=== PATIENT | female | born 1955 | race Caucasian/White ===

== ENCOUNTER → 2019-11-15 | Outpatient (CLI) | payer OTHER ==
--- NOTE | 2019-11-16 11:08 | RAD ---
DATE: November 15, 2019 EXAM: DIGITAL SCREEN BILAT W/CAD HISTORY: Screening study. COMPARISON: 2014 and 2016. This study was interpreted with the benefit of Computerized Aided Detection (CAD). FINDINGS: Breast Density: SCATTERED The breast parenchyma shows scattered fibroglandular densities. Breast parenchyma level B.. There is a new nodular density within the upper outer quadrant of the left breast located 8-9 cm from the nipple. Recommend focal compression views and 90 degrees mediolateral view of the left breast followed by left breast sonography for further evaluation. The right breast is stable. No clustering of pleomorphic microcalcifications are evident on either side. IMPRESSION: New nodular density of the left breast. Additional imaging is needed. BI-RADS CATEGORY: 0 INCOMPLETE: NEEDS ADDITIONAL IMAGING EVALUATION AND/OR PRIOR MAMMOGRAMS FOR COMPARISON. RECOMMENDED FOLLOW-UP: ADD ADDITIONAL IMAGING PQRS compliance statement: Patient information was entered into a reminder system with a target due date now for the next imaging study. Mammography is a sensitive method for finding small breast cancers, but it does not detect them all and is not a substitute for careful clinical examination. A negative mammogram does not negate a clinically suspicious finding and should not result in delay in biopsying a clinically suspicious abnormality. "Our facility is accredited by the [employer] Mammography [employer]." The patient's breast density may affect the ability of mammography to detect breast cancer. There are 4 categories of breast density, A, B, C and D. Breast density A means that most of the breast tissue is replaced with adipose tissue and therefore is not dense. Breast density B means that the breast tissue is mildly dense and scattered. Breast density C means that the breast tissue is heterogeneously dense. Breast density D means that the breast tissue is very dense. Breast densities especially C and D may decrease the sensitivity of mammography to detect breast cancer. Therefore, the patient may benefit from 3-D breast mammography (3D breast tomography) as a part of their screening mammogram. Insurance may or may not pay for this additional imaging. The patient's breast density based on today's mammogram is category B.
== END | disposition home or self-care (01) ==
LOC: MAMMO 08:55
PROVIDERS: ATTEND Nurse Practitioner Gerontology
DX: Z12.31 Encounter for screening mammogram for malignant neoplasm of breast (principal)
CPT/HCPCS: 77067

== ENCOUNTER → 2019-11-17 | Outpatient (CLI) | payer OTHER ==
--- NOTE | 2019-11-17 16:44 | RAD ---
DATE: 11/17/2019. EXAM: DIGITAL DIAGNOSTIC LT, BREAST LEFT. HISTORY: Density on mammographic screening, additional views are requested. COMPARISON: 11/15/2019. FINDINGS: Breast Density: SCATTERED The breast parenchyma shows scattered fibroglandular densities. Breast parenchyma level B.. The density of concern superolaterally resolves to a parenchymal density on spot compression. Vascular calcifications are benign. There is no suspicious mammographic finding. On today's sonography, the mems integration engineer notes a small hypoechoic focus at the 2:00 position 5 cm from the nipple. It measures 3 x 2 mm. On real-time scanning, it is likely is above normal fat in a dense interstitial band. There is no suspicious sonographic finding. BI-RADS CATEGORY: 2 BENIGN FINDING(S). RECOMMENDED FOLLOW-UP: 12M 12 MONTH FOLLOW-UP. PQRS compliance statement: Patient information was entered into a reminder system with a target due date 11/15/2020 for the next mammogram. Mammography is a sensitive method for finding small breast cancers, but it does not detect them all and is not a substitute for careful clinical examination. A negative mammogram does not negate a clinically suspicious finding and should not result in delay in biopsying a clinically suspicious abnormality. "Our facility is accredited by the [employer] Mammography Program."
== END | disposition home or self-care (01) ==
LOC: MAMMO 12:43
PROVIDERS: ATTEND Nurse Practitioner Gerontology
DX: R92.8 Other abnormal and inconclusive findings on diagnostic imaging of breast (principal)
CPT/HCPCS: 76641; 77065

== ENCOUNTER → 2020-10-11 | Outpatient (CLI) | payer OTHER ==
--- NOTE | 2020-10-11 10:21 | KCIC ---
EXAMINATION: BARIUM ENEMA (CONTRAST ENEMA) CLINICAL HISTORY: Incomplete colonoscopy, irregular bowels. History of hysterectomy, appendectomy, 2 c-sections. TECHNIQUE: Single-contrast enema performed utilizing thin barium after insertion of a rectal tube. - Number of Images: 15 - Fluoroscopy Time: 3 minutes 37 seconds COMPARISON: None FINDINGS: No evidence of annular lesion, polypoid lesion, or other mucosal abnormality. Mild diverticulosis descending and sigmoid colon. IMPRESSION: Mild colonic diverticulosis. No evidence of discrete mass. Electronically signed by: Nirmal Talbert DO (10/11/2020 10:19 AM) [id number]
== END ==
LOC: KCIC 08:15
PROVIDERS: ATTEND Internal Medicine Gastroenterology
DX: K57.30 Diverticulosis of large intestine without perforation or abscess without bleeding (principal); Z91.19 Patient's noncompliance with other medical treatment and regimen
CPT/HCPCS: 74270

== ENCOUNTER → 2020-10-29 | Outpatient (CLI) | payer OTHER ==
--- NOTE | 2020-10-29 14:02 | KCIC ---
EXAM: Pelvis and right hip, 2 views. HISTORY: Pain. COMPARISON: None. FINDINGS: A frontal view the pelvis and frog-leg view of the right hip are obtained. There is no fracture, dislocation or subluxation. The femoral heads are normal in configuration. There are laminectomy changes involving the lower lumbar spine with noninstrumented fusion at the lumbosacral junction. IMPRESSION: No acute osseous finding. Electronically signed by: Lanie Huertas MD (10/29/2020 1:59 PM) [facility]
--- NOTE | 2020-10-29 16:56 | KCIC ---
3 views lumbar spine without comparison for back and right hip pain for a week, history of prior surgery. FINDINGS: There is grade 1 anterolisthesis of L3 on L4 as well as L4-L5. There is moderate narrowing of L2-3 and L4-5 intervertebral disc space with mild narrowing at L5-S1. There is bulky facet arthrosis throughout the lower lumbar levels. Overall, findings quite likely result in significant central canal stenosis at L3-4 and perhaps L4-5 as well, and could be better evaluated with MRI if clinically warranted. There is no acute osseous or alignment abnormality identified. IMPRESSION: 1. Severe multilevel degenerative changes likely resulting in central canal stenosis and possibly significant neural foraminal narrowing at multiple levels as described. Consider further evaluation with MRI. Electronically signed by: Logan Kirk MD (10/29/2020 4:53 PM) [id number]
== END ==
LOC: KCIC 12:59
PROVIDERS: ATTEND Nurse Practitioner Gerontology
DX: M43.16 Spondylolisthesis, lumbar region (principal); M48.07 Spinal stenosis, lumbosacral region
CPT/HCPCS: 72100; 73501